=== PATIENT | male | born 1945 | race Hispanic/Latino ===

== ENCOUNTER 2016-04-27 19:04 | Observation (INO) | payer MEDICARE ==
[~2016-04-27] VITALS: Ht 162.6 cm; Wt 72.3 kg
[~2016-04-27 19:04] MED LIST: ACET325C PO; ASPI-973 PO; ATOR80TA77 PO; CARV12.52 PO; CHOL10008 PO; CYAN10008 PO; DIPH25CA6 PO; DOCU-41 PO; FLUO20CA25 PO; FLUT9.9S NS; FURO-128 PO; GABA600T2 PO; INSU100I18 SUBQ; INSU100V7 SUBQ; LOSA25TA21 PO; METF1000 PO; MULT1CAP33 PO; POTA10CA42 PO; PRAM0.5T10 PO; RANI150C4 PO
[2016-04-27 19:17] VITALS: BP 135/70; PULSE 64; RESP 16; O2SAT 96
--- NOTE | 2016-04-27 20:13 | ED.REPORT ---
HPI-Trauma Minor / Fall Date of Service Apr 27, 2016 ED Provider: Yogesh Wells PA-C Prashant is a 70-year-old male with a history of coronary artery disease, heart failure, hypertension, pacemaker, DM who presents with a left rib pain. He states that 2 days ago he slipped in his bathroom and fell against the toilet. Denies striking his head, losing consciousness. He takes baby aspirin daily, denies blood thinners. Admits to feeling weak since the accident. Denies shortness of breath, cough, wheeze, chest pain, palpitations. Denies abdominal pain, bloody/tarry stools, hematuria, dysuria. Nursing Notes Stated Complaint: BROKEN RIBS Chief Complaint: Multiple Trauma/Fall Nursing Notes Reviewed: Yes Allergies: Coded Allergies: naproxen (Verified Allergy, Mild, Restless legs, 01/18/16) Scheduled Aspirin (Aspirin) 81 Mg Tablet 81 MG PO DAILY Atorvastatin Calcium (Atorvastatin Calcium) 80 Mg Tablet 80 MG PO DAILY Carvedilol (Carvedilol) 12.5 Mg Tablet 12.5 MG PO BID Cholecalciferol (Vitamin D3) (Vitamin D3) 1,000 Unit Tab.chew 1,000 UNIT PO DAILY Cyanocobalamin (Vitamin B-12) (Vitamin B-12) 1,000 Mcg Tablet 1,000 MCG PO DAILY Docusate Sodium (Colace) 100 Mg Capsule 200 MG PO DAILY Fluoxetine (Fluoxetine) 20 Mg Capsule 40 MG PO QAM Furosemide (Lasix) 40 Mg Tablet 40 MG PO DAILY Gabapentin (Gabapentin) 600 Mg Tablet 300 MG PO QAM Gabapentin (Gabapentin) 600 Mg Tablet 1,200 MG PO HS Insulin Glargine (Lantus U100 Insulin Vial) 100 Unit/Ml Vial 16 UNIT SUBQ HS Insulin Lispro (HumaLOG U100 Insulin Pen) 100 Unit/1 Ml Insuln.pen 1 UNIT SUBQ TIDWM Blood Sugar Lispro Correction <151 0 units 151-175 1 unit 176-200 2 units 201-225 3 units 226-250 4 units 251-275 5 units 276-300 6 units 301-325 7 units 326-350 8 units 351-375 9 units 376-400 10 units >400 12 units Check blood sugars before meals and at bedtime. Use correction factor only before meals. Losartan Potassium (Losartan Potassium) 25 Mg Tablet 12.5 MG PO HS Metformin (Glucophage) 1,000 Mg Tablet 1,000 MG PO QAM Metformin (Glucophage) 1,000 Mg Tablet 1,500 MG PO QPM Multivitamin (Multivitamins) 1 Each Capsule 1 EACH PO DAILY Potassium Chloride (Potassium Chloride) 10 Meq Capsule.er 10 MEQ PO DAILY TAKE WITH FOOD Pramipexole Dihydrochloride (Pramipexole Dihydrochloride) 0.5 Mg Tablet 0.25- 0.5 MG PO HS Scheduled PRN Acetaminophen (Acetaminophen) 325 Mg Capsule 650 MG PO TID PRN PRN For Pain Fluticasone Propionate (Flonase Allergy Relief) 50 Mcg/Actuation Rochelle.susp 1 SPRAY NS DAILY PRN PRN allergies Ranitidine (Ranitidine) 150 Mg Capsule 150 MG PO DAILY PRN PRN For Dyspepsia or Heartburn diphenhydrAMINE HCl (Benadryl) 25 Mg Capsule 25 MG PO Q4 PRN PRN allergies oxyCODONE (oxyCODONE) 5 Mg Tablet 5 MG PO Q4H PRN PRN For Pain General Time Seen by MD: 19:42 Chief Complaint Other (left rib pain) Past Medical History Past Medical History 1. Severe ischemic cardiomyopathy with ejection fraction 35%. 2. Bifascicular block with prolonged QRS duration. 3. [place] Heart [employer] class III heart failure symptoms. 4. Systemic hypertension. 5. Dyslipidemia. 6. Coronary artery disease status post bypass grafting with known occluded vein graft. 7. Carotid artery stenosis. 8. Paroxysmal atrial fibrillation. 9. Sleep apnea. 10. Nephrolithiasis. 11. Spinal stenosis. 12. Gastroesophageal reflux disease. 13. Diabetes mellitus. 14. Restless legs syndrome. 15. Diabetic peripheral neuropathy. Past Surgical History Coronary artery disease status post bypass grafting with known occluded vein graft. CTR L&R Pacemaker Reports: Cholecystectomy Smoking History Former Smoker Social History Alcohol Use: Denies alcohol use Drug Use: Denies drug use Ambulatory Status Independent Review of Systems Negative unless stated otherwise in history of present illness Physical Exam General: Well appearing, well developed, well nourished, no acute distress. Head: Atraumatic, normocephalic. Eyes: No scleral icterus or injection. No discharge. Vision grossly intact. ENT: Voice clear, hearing grossly intact. Respiratory: Regular rate and rhythm. Breath sounds present, clear to auscultation and equal bilaterally. No respiratory distress. No increased work of breathing, speaks in complete sentences. Cardiovascular: Regular rate and rhythm, without murmur, gallop or rub. No pedal edema. Gastrointestinal: Abdomen flat and non-tender without guarding or rebound. Bowel sounds normoactive. Skin: Warm and dry. Chest: 4 cm ecchymosis over the lateral ribs 6-7. Tender to palpation. Neurological: Grossly nonfocal. Psychological: Alert and oriented. Speech appropriate, linear and logical. Behavior appropriate. Initial Vital Signs Vital Signs (First) Date Time Temp Pulse Resp B/P Pulse Ox O2 Delivery O2 Flow Rate FiO2 04/27/16 19:17 36.1 64 16 135/70 96 Room Air Initial VS: Reviewed, Vital signs normal Interpretation & Diagnostics Lab Results Interpretation Result Diagram: 04/27/16214404/27/162144 Test 04/27/16 21:45 White Blood Count 8.7th/mm3 (3.8-10.1) Red Blood Count 3.58mil/mm3 (4.40-5.80) Hemoglobin 10.6g/dL (13.8-17.2) Hematocrit 33.3% (41.0-50.0) Mean Corpuscular Volume 93.0fL (81-100) Mean Corpuscular Hemoglobin 29.6pg (27.0-35.0) Mean Corpuscular Hemoglobin Concent 31.8% (32.0-37.0) Red Cell Distribution Width 14.2% (12.3-15.4) Platelet Count 159bil/L (150-400) Neutrophils (%) (Auto) 77.5% (40-74) Lymphocytes (%) (Auto) 13.6% (14-46) Monocytes (%) (Auto) 7.2% (4-12) Eosinophils (%) (Auto) 1.5% (0-5) Basophils (%) (Auto) 0.1% (0-3) Sodium Level 134mEq/L (134-144) Potassium Level 4.9mEq/L (3.5-5.2) Chloride Level 92mEq/L (97-108) Carbon Dioxide Level 27mmol/L (18-29) Blood Urea Nitrogen 55mg/dL (8-27) Creatinine 1.58mg/dL (0.76-1.27) Estimat Glomerular Filtration Rate 46mL/min (>59) Glucose Level 152mg/dL (60-99) Calcium Level 9.3mg/dL (8.5-10.1) Total Bilirubin 0.5mg/dL (0.0-1.2) Aspartate Amino Transf (AST/SGOT) 33U/L (0-50) Alanine Aminotransferase (ALT/SGPT) 21U/L (0-44) Alkaline Phosphatase 71U/L (25-160) Troponin T 0.023ug/L (0.0-0.011) Total Protein 7.2g/dL (6.4-8.4) Albumin 4.2g/dL (3.4-5.0) Hold Meng Top Tube Received (Received) ECG Interpretation ECG Interpretation: Paced rhythm at 64 bpm. Pacer spikes before each QRS, 100% capture, 100% paced Interpreted by: ED physician X-Ray Chest Interpretation Chest Xray Interpretation: PROCEDURE: X-RAY LEFT RIBS INCLUDEING PA CHEST, MINUMUM THREE VIEWS ([id number]) INDICATIONS: 70 year-old female with left rib pain after fall 2 days ago. IMPRESSION: No displaced left rib fractures identified. No acute cardiopulmonary disease. Interpretation / Wet Read by: Interpret - Radiologist, Interp - P Re-Eval/Medical Decision Med Decision/Clinical Course 70-year-old male history of diabetes, hypertension, heart disease, pacemaker. Presents for left chest pain after a slip and fall in his bathroom in which he struck his left chest against the toilet. Denies hitting his head or losing consciousness. Denies shortness of breath, cough, wheeze. He also complains of weakness since the fall. Physical examination reveals bruising on the left ribs as well as tenderness. X -rays reveal no damage to the lungs or displaced rib fractures. EKG reveals a ventricular paced rhythm. CBC shows no leukocytosis but mild anemia. CMP shows reduced kidney function. Troponin mildly elevated at 0.023. I discussed these findings with the patient and his . They wish to be admitted for assessment. Contacted the hospitalist who accepts admission to observation in remote telemetry bed Consultation : Referral / Consult Name: Nuha Hensley DO Consulted With: Hospitalist Rope Making Machine Operator: Accepts admit Discharge & Departure Impression: Primary Impression: Weakness Additional Impressions: Contusion of rib on left side Encounter type: initial encounter Qualified Code: S20.212A - Contusion of left front wall of thorax, initial encounter Elevated troponin Disposition: ADMITTED TO HOSPITAL Discharge Condition All VS Reviewed: Yes Condition: Stable Patient Instructions: Contusions in Adults (ED) Additional Instructions: Evaluation for left rib pain in the emergency department. X-rays revealed no damage to your lungs and no fractures in your ribs. I believe your pain is a contusion from your fall. This should improve on its own over the next week or so. Please use your incentive spirometer every hour while while you are awake for as long as you are ribs hurt. The pain is best treated with 1000 mg of acetaminophen (Tylenol) every 6 hours. I will also give a prescription for a small amount of oxycodone to use in addition to this for more severe pain. Please not drive or drink alcohol within 4 hours of taking oxycodone. Referrals: Kristy Roy MD (PCP) EDSupervising Provider for APC: Gokul Calabrese DO copies to: Kristy Roy MD, Seth PA-C Apr 27, 2016 20:13
--- NOTE | 2016-04-27 20:55 | DRSVH ---
PROCEDURE: X-RAY LEFT RIBS INCLUDEING PA CHEST, MINUMUM THREE VIEWS ([id number]) INDICATIONS: 70 year-old female with left rib pain after fall 2 days ago. TECHNIQUE: 2 views of the left ribs were acquired, along with a single view chest. COMPARISON: [facility], CR, XR CHEST 1VW (PORTABLE), 01/18/2016, 1:40. [facility], CR, XR CHEST 1VW (PORTABLE), 01/10/2016, 12:46. [facility], CR, XR CHEST 2VW, , 14:47. FINDINGS: Skin marker denotes the site of clinical concern. Surgical changes and devices: Patient is status post coronary artery bypass grafting. The right ventr icular pacer/ICD is again noted. Bones and chest wall: No fractures or dislocations. No suspicious bony lesions. Overlying soft tis sues appear unremarkable. Lungs and pleura: No pleural effusions or pneumothorax. Lungs appear clear. Mediastinum: Mediastinal contours appear normal. Heart size is normal. There is aortic atheroscler osis. IMPRESSION: No displaced left rib fractures identified. No acute cardiopulmonary disease. Dictated by: Arpit Brooks M.D. on 04/27/2016 at 20:51 Approved by: Arpit Brooks M.D. on 04/27/2016 at 20:54
[2016-04-27 21:56] LABS: BASOPHILS % (AUTO) 0.1 % (0-3); EOSINOPHILS % (AUTO) 1.5 % (0-5); MONOCYTES % (AUTO) 7.2 % (4-12); Mean Corpuscular Hemoglobin 29.6 pg (27.0-35.0); NEUTROPHILS % (AUTO) 77.5 % (40-74); Platelet Count 159 bil/L (150-400)
[2016-04-27] MEDS ORDERED: OXYC5TAB72 PO (22:25)
[2016-04-27 22:41] LABS: TROPONIN T 0.023 ug/L (0.0-0.011)
[2016-04-27 23:20] VITALS: BP 108/58; PULSE 62; RESP 16; O2SAT 92
[2016-04-27] MEDS ORDERED: Polyethylene Glycol (PEG) 17 Gm Powder PO PRN (23:25)
[2016-04-27] MEDS ORDERED: Ondansetron 2 mg/mL 2 mL Inj IVPUSH PRN (23:25)
[2016-04-27] MEDS ORDERED: Alum-Mag Hydrox-Simeth 30 mL Suspension PO PRN (23:25)
[2016-04-27 23:50] VITALS: BP 121/63; PULSE 62; RESP 21; O2SAT 94
[2016-04-28] VITALS (7 sets, daily range): BP systolic 113–147; BP diastolic 62–80; PULSE 58–69; RESP 14–18; O2SAT 93–100
--- NOTE | 2016-04-28 00:57 | NUR ---
Admit Patient admitted to room 3008 at 2340, accompanied by . Oriented to room, call light, hospital policies, plan of care, intentional rounding. Asked patient's to bring in current medication list and CPAP, agreeable. Patient on telemetry. Denies pain except with coughing/hiccuping/laughing. Awaiting further MD orders. Property waiver signed by patient's , she took most belongings home.
[2016-04-28] MEDS ORDERED: Ondansetron 2 mg/mL 2 mL Inj IVPUSH PRN (01:10)
[2016-04-28] MEDS ORDERED: Atropine 1 mg/10 mL (Code) Syringe IVPUSH PRN (01:10)
[2016-04-28] MEDS ORDERED: Polyethylene Glycol (PEG) 17 Gm Powder PO PRN (01:10)
[2016-04-28] MEDS ORDERED: Alum-Mag Hydrox-Simeth 30 mL Suspension PO PRN (01:10)
[2016-04-28] MEDS ORDERED: Senna-Docusate 8.6-50 mg Tablet PO PRN (01:10)
[2016-04-28] MEDS ORDERED: 0.9% Sodium Chloride 1,000 ML IV SCH (01:10)
[2016-04-28] MEDS: Sodium Chloride LOK Flush 10 mL Syringe IVFLUSH SCH ×2 (01:43→17:29)
[2016-04-28 02:00] LABS: Creatine Kinase 90 U/L (21-232)
[2016-04-28] MEDS ORDERED: Glucose 40% Oral Gel 15 Gm Tube PO PRN (05:15)
--- NOTE | 2016-04-28 05:26 | PCM.HPMED ---
Subjective Date of Service Apr 28, 2016 Primary Provider: Admitting Physician: Nuha Hensley DO Primary Care Physician: Kristy Roy MD Attending Physician: Nuha Hensley DO Admit Status: From the Emergency Department Chief Complaint: Weakness History of Present Illness: 70-year-old male patient with a history of type II diabetes insulin-dependent, CHF, coronary artery disease status post CABG and dementia presented to the ER with complaint of weakness and rib pain. Patient reports that 3 days ago he slipped in his bathroom and hit the side of his chest on the tub. Patient states he was told he has not broken any ribs but continues to complain of pain. Patient reports that this morning he got up and was sitting at the edge of his bed and began feeling very dizzy and weak. Patient states that he almost fainted. Patient reports that he thought that the episode would dissipate but it did not and his drove him to the ER. Patient states that he is no longer feeling dizzy but he does continue to feel very weak. Patient denies any shortness of breath, chest pain, nausea, vomiting, diarrhea. Patient does report continued rib pain especially with deep inspiration. Review of Systems: A comprehensive review of systems was conducted with the patient and found to be negative except as above in the History of Present Illness. Allergies Coded Allergies: naproxen (Verified Allergy, Mild, Restless legs, 01/18/16) Home Medications From outpatient records Aricept 10 mg daily Atorvastatin 80 mg daily Carvedilol 12.5 mg twice a day Famotidine 20 mg twice a day Flomax 0.4 mg twice a day Fluoxetine 20 mg, 2 capsules daily Furosemide 40 mg daily Gabapentin 600 mg tablet, 300 mg in the morning and 1200 mg at night Lantus 16 units every evening Losartan 25 mg daily Metformin 500 mg, 2 tablets every morning and 3 tablets every evening Vitamin Pramipexole 0.5 mg, half tablet to one tablet every day Ranitidine 150 mg 1 tablet twice a day PMH History of CVA Hyperlipidemia Diabetes mellitus type 2 independent Peripheral vascular disease 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 Sleep apnea using CPAP Nonoperable CAD s/p CABG Systolic congestive heart failure with right ventricular dysfunction secondary to ischemic cardiomyopathy Dementia Aortic stenosis - severe Carotid artery stenosis, bilateral Seasonal allergies Biventricular automatic implantable cardioverter defibrillator in situ Vertebral artery stenosis Restless leg syndrome Spinal stenosis with chronic low back pain Non-rheumatic mitral regurgitation Depression Atrial fibrillation, paroxysmal Hepatitis Nephrolithiasis Chronic renal insufficiency GERD Hypertension 1st degree AV block Peyronie's disease Alcoholism - 1969 Substance abuse-1969 Pneumonia Cholelithiasis Surgical History CABG Failed femoral-popliteal bypass Cholecystectomy Bilateral carpal tunnel release Back surgery Biventricular pacemaker placement Right cataract extraction Family History Father-obstructive sleep apnea, anxiety, alcoholism, cancer Mother-CVA, brain aneurysm, diabetes mellitus, cardiac surgery Family history-colon cancer, hypertension, anemia, CAD, hyperlipidemia Social History Hx Alcohol Use: Yes (occasional) Hx Substance Use: Yes (Marijuana in the 70s) Hx Tobacco Use: Yes (quit 35 years ago, 1/2 PPD 10 years) Smoking Status: Former Smoker Living Arrangement: with Family Exam Vital Signs Vital Sign - Last Date Time Temp Pulse Resp B/P Pulse Ox O2 Delivery O2 Flow Rate FiO2 04/27/16 23:50 36.5 62 21 121/63 94 Room Air Exam General: No acute distress, well-developed, well-nourished, appropriately interactive HEENT: Normocephalic, atraumatic. External ears without defect. Pupils equal, round, and reactive to light and accommodation. Moist conjunctivae. Oropharynx with moist mucosa. Neck: Supple with full range of motion.No lymphadenopathy Cardiovascular: Regular rate and rhythm with systolic murmur. No rubs, or gallops appreciated Pulmonary: Wincing with deep inspiration secondary to rib pain on left side. Clear to auscultation bilaterally with no crackles, wheezes, or rhonchi. Normal respiratory effort with no use of accessory muscles. Abdomen: Bowel tones present. Soft, nontender, nondistended. Extremities: No clubbing, cyanosis, edema, appreciated. Skin: Normal temperature, turgor, and texture; no rash, ulcers, or subcutaneous nodules appreciated. Psychiatric: Normal mood and affect, forgetful at times. Alert and oriented to person, place, and time. Lab and Diagnostics Result Diagram: 04/27/16214404/27/162144 X-Rays, CTs and MRIs PROCEDURE: X-RAY LEFT RIBS INCLUDEING PA CHEST, MINUMUM THREE VIEWS ([id number]) INDICATIONS: 70 year-old female with left rib pain after fall 2 days ago. TECHNIQUE: 2 views of the left ribs were acquired, along with a single view chest. COMPARISON: [facility], CR, XR CHEST 1VW (PORTABLE), 01/18/2016, 1: 40. [facility], CR, XR CHEST 1VW (PORTABLE), 01/10/2016, 12:46. [facility], CR, XR CHEST 2VW, 11/11/2014, 14:47. FINDINGS: Skin marker denotes the site of clinical concern. Surgical changes and devices: Patient is status post coronary artery bypass grafting. The right ventricular pacer/ICD is again noted. Bones and chest wall: No fractures or dislocations. No suspicious bony lesions. Overlying soft tissues appear unremarkable. Lungs and pleura: No pleural effusions or pneumothorax. Lungs appear clear. Mediastinum: Mediastinal contours appear normal. Heart size is normal. There is aortic atherosclerosis. IMPRESSION: No displaced left rib fractures identified. No acute cardiopulmonary disease. Dictated by: Arpit Brooks M.D. on 04/27/2016 at 20:51 Approved by: Arpit Brooks M.D. on 04/27/2016 at 20:54 Assessment & Plan Acute generalized weakness, unknown etiology, present on admission, ongoing -Patient reports sudden onset of weakness -Clear etiology at this time, there are no signs of infection, no electrolyte abnormalities, no anemia and no arrhythmias as patient is paced -Continue to monitor -Physical therapy evaluation in the a.m. Elevated troponin of unknown etiology, present on admission, ongoing -Initial troponin elevated at 0.023 -Trending troponins every 4 hours -Troponin elevation is likely secondary to chronic kidney disease -Patient denies any chest pain or symptoms -Continue to monitor Chronic anemia, present on admission, ongoing -Outpatient records demonstrates chronic anemia, secondary to kidney disease -Continue to monitor with a.m. labs Chronic kidney disease, present on admission, ongoing -Review of outpatient records demonstrates that patient's baseline creatinine is about 1.5. Labs from 04/13/2016 show BUN of 58 creatinine 1.53 -Continue to monitor with labs Diabetes mellitus type II, insulin-dependent, present on admission, ongoing -Hold home dose of medications once medication reconciliation was completed -Low-dose correctional insulin ordered -Diabetic diet in the a.m. Recent ground-level fall resulting in contusions to left ribs, present on admission, ongoing -X-rays of ribs did not demonstrate any fractures -Recommend use of incentive spirometry as patient is at high risk of atelectasis -Current use of pillows for splinting Coronary artery disease status post CABG, chronic, presumed stable -Once medication reconciliation is completed, continue home medications Systolic congestive heart failure, chronic, presumed stable -Patient lying supine with no lower extremity edema or report of shortness of breath -Patient is followed by Dr. Block of cardiology -Patient receiving IV normal saline, monitor to avoid fluid overload -Once medication reconciliation is completed, continue home medications Chronic dementia, presumed stable -Once medication reconciliation is completed, continue home medications BPH, chronic, presume stable. -Once medication reconciliation is completed, continue home medications Depression, chronic, presume stable -Once medication reconciliation is completed, continue home medications Obstructive sleep apnea with CPAP, chronic, presume stable - to bring in CPAP PCP: Dr Roy CODE STATUS: Compressions and cardioversion okay. DO NOT INTUBATE VTE Mechanical Devices: Intermittant Pneumatic CD Resuscitation Status: Limited Interventions Limited Interventions: Compressions, Cardioversion/Defibrillation Attending Statement The patient was seen and examined together with house staff on 04/28/2016 and I agree with the history, exam and plan as outlined in the note above. copies to: Kristy Roy MD, Tara L DO Apr 28, 2016 01:49 Nuha Hensley DO Apr 28, 2016 05:42
[2016-04-28 07:08] LABS: Magnesium 2.4 mg/dL (1.6-2.6)
[2016-04-28] MEDS: Insulin LISPRO 300 Unit/3 mL Inj SUBQ SCH ×5 (07:40→21:08)
[2016-04-28 08:04] LABS: BASOPHILS % (AUTO) 0.3 % (0-3); EOSINOPHILS % (AUTO) 3.3 % (0-5); MONOCYTES % (AUTO) 12.7 % (4-12); Mean Corpuscular Hemoglobin 29.3 pg (27.0-35.0); Mean Corpuscular Volume 92.8 fL (81-100); NEUTROPHILS % (AUTO) 64.1 % (40-74); Platelet Count 146 bil/L (150-400)
[2016-04-28 08:24] LABS: INR 1.01 ratio
[2016-04-28] MEDS ORDERED: DONE10TA5 PO (08:27)
[2016-04-28] MEDS ORDERED: FAMO20TA4 PO (08:28)
[2016-04-28] MEDS ORDERED: TAMS0.4C98 PO (08:29)
[2016-04-28 08:34] LABS: TROPONIN T 0.012 ug/L (0.0-0.011)
[2016-04-28 08:45] LABS: Magnesium 2.3 mg/dL (1.6-2.6)
[2016-04-28 09:59] LABS: APPEARANCE,URINE HAZY (CLEAR,HAZY); COLOR,URINE STRAW (YELLOW)
[2016-04-28 10:00] LABS: OCCULT BLOOD,URINE NEGATIVE (NEGATIVE); UROBILINOGEN,URINE NORMAL (NORMAL)
--- NOTE | 2016-04-28 11:10 | NUR ---
Evaluation completed. Please go to "Notes" then click on "Assessments and Notes" (bottom left corner of screen). Then select appropriate discipline tab on top of screen.
[2016-04-28] MEDS ORDERED: Fluticasone 0.05% 15 Spray/2 Gm 16 Gm Nasal Spray NOSTRIL PRN (12:05)
--- NOTE | 2016-04-28 13:21 | NUR ---
Social Work: Initial Assessment Data: Pt is a 70 y/o male admitted for weakness/elevated troponin. Pt's PCP is Dr Roy, pt's insurance is [employer]. EMR reviewed. Readmit score not listed. BENDER MACHINE OPERATOR met with pt and family at bedside, role explained. Pt states that he lives in [place] with his in a two story home where he uses a cane and walker. Pt states he uses O2 through [employer] and has a Cpap. Pt states he has hx with [facility], open with them right now, and no hx of SNF, no LTC or VA benefits, and is not a caregiver for another. Pt state she has a DPOA, BENDER MACHINE OPERATOR requested paper work for hospital. Pt open with [facility] for RN, PT. BENDER MACHINE OPERATOR called [facility] to request SLASHER HAND be added. Access given. MD will need to write in D/C summary to resume HH and to add bath aid. BENDER MACHINE OPERATOR will continue to follow. Assessment: Pt who is independent at baseline. Plan: Pt will d/c home via POV when medically stable with resume FRANK, RN/PT, add SLASHER HAND(bath aid). MD will need to write in D/C summary to resume HH and to add bath aid. BENDER MACHINE OPERATOR will continue to follow. OBED Sherman Addendum: 04/28/16 at 1328 by PRESTON COYLE SS Amended: Links added.
--- NOTE | 2016-04-28 14:56 | DRSVH ---
PROCEDURE: CT BRAIN WITHOUT CONTRAST ([id number]) INDICATIONS: altered mental status. weakness TECHNIQUE: Noncontrast 4.5 mm thick angled axial sections acquired from the foramen magnum to the vertex, with c oronal reformats. COMPARISON: [facility], CT, CT BRAIN WO CON, 01/18/2016, 1:56. [facility], CT, CT BRAIN WO CON, 01/10/2016, 13:00. FINDINGS: Image quality: Excellent. CSF spaces: Basal cisterns are patent. No extra-axial fluid collections. The ventricles are symmet carla in size and shape. Brain: No intracranial bleeds or masses. There is cerebral volume loss for age, with resultant vent ricular and sulcal prominence. There are periventricular and deep white matter chronic small vessel ischemic changes. There is intracranial internal carotid artery atherosclerosis. Skull and face: Calvarium and visualized facial bones appear intact, without suspicious lesions. Sinuses: Visualized sinuses and mastoids are clear. IMPRESSION: No acute intracranial abnormality. Dictated by: Herminio Ordonez M.D. on 04/28/2016 at 14:49 Approved by: Herminio Ordonez M.D. on 04/28/2016 at 14:50
--- NOTE | 2016-04-28 15:36 | NUR ---
ART explained and signed. Pt's and daughter at bedside and heard explanation also. Copy of CORDOVA provided.
--- NOTE | 2016-04-28 16:33 | PCM.PNMED ---
Subjective Date of Service Apr 28, 2016 Subjective still having some generalized weakness but overall says feels better. Exam Vital Signs Vital Sign - Last Date Time Temp Pulse Resp B/P Pulse Ox O2 Delivery O2 Flow Rate FiO2 04/28/16 13:59 36.6 63 16 113/80 94 Room Air 04/28/16 04:09 2.00 Intake and Output 04/27/16 04/27/16 04/28/16 Cumulative From/Thru 15:00 23:00 07:00 04/27/16 19:17 - 04/28/16 06:05 Intake Total 348 ml 348 ml Output Total 100 ml 100 ml Balance 248 ml 248 ml Intake Oral 0 ml 0 ml IV Total 348 ml 348 ml Output Urine Total 100 ml 100 ml # Voids 2 2 # Bowel Movements 0 0 General: Alert, Oriented X3, Cooperative, No Acute Distress Eyes: PERRLA, EOMI, Scleral Anicteric Nose: Mucous Membr Moist/[place] Mouth: Mucous Membr Moist/[place] Neck: Supple Chest & Lungs: Chest Wall Normal, Clear to auscultation & percussion Cardiovascular: Regular Rate/Rhythm Pulses: NL carotid, radial, femoral, DP, PT Abdomen: Non-tender, Non-distended, Normoactive bowel tones, Soft Extremities: No cyanosis/clubbing/edma bilat Neurological: Grossly Neurologically Intact, Cranial Nerves 2-12 Intact, Normal Speech IVs and Medications Medications Reviewed: Medications were reviewed in detail Lab and Diagnostics Result Diagram: 04/28/16 0738 04/28/16 0738 X-Rays, CTs and MRIs PROCEDURE: X-RAY LEFT RIBS INCLUDEING PA CHEST, MINUMUM THREE VIEWS ([id number]) INDICATIONS: 70 year-old female with left rib pain after fall 2 days ago. TECHNIQUE: 2 views of the left ribs were acquired, along with a single view chest. COMPARISON: [facility], CR, XR CHEST 1VW (PORTABLE), 01/18/2016, 1: 40. [facility], CR, XR CHEST 1VW (PORTABLE), 01/10/2016, 12:46. [facility], CR, XR CHEST 2VW, 11/11/2014, 14:47. FINDINGS: Skin marker denotes the site of clinical concern. Surgical changes and devices: Patient is status post coronary artery bypass grafting. The right ventricular pacer/ICD is again noted. Bones and chest wall: No fractures or dislocations. No suspicious bony lesions. Overlying soft tissues appear unremarkable. Lungs and pleura: No pleural effusions or pneumothorax. Lungs appear clear. Mediastinum: Mediastinal contours appear normal. Heart size is normal. There is aortic atherosclerosis. IMPRESSION: No displaced left rib fractures identified. No acute cardiopulmonary disease. Dictated by: Arpit Brooks M.D. on 04/27/2016 at 20:51 Approved by: Arpit Brooks M.D. on 04/27/2016 at 20:54 Assessment & Plan 70-year-old male patient with a history of type II diabetes insulin-dependent, CHF, coronary artery disease status post CABG and dementia presented to the ER with complaint of weakness and rib pain. # Acute generalized weakness, present on admission, improving -Patient reports sudden onset of weakness and difficulty with speech prior to presentation -Unclear exact etiology but possibly due to dehydration vs less likely acute TIA -check CT brain (unable to get MRI due to pacer) # Elevated troponin of unknown etiology, present on admission -Initial troponin elevated at 0.023 now trended down to normal -check limited echo -denies any CP other than left rib pain # Chronic anemia, present on admission, stable -Outpatient records demonstrates chronic anemia, secondary to kidney disease -f/u # Chronic kidney disease, present on admission, ongoing -Review of outpatient records demonstrates that patient's baseline creatinine is about 1.5. -Continue to monitor with labs # Diabetes mellitus type II, insulin-dependent, present on admission, ongoing -Resume home dose Insulin -Low-dose correctional insulin -stop Metformin given underlying CKD # Recent ground-level fall resulting in contusions to left ribs, present on admission, ongoing -X-rays of ribs did not demonstrate any fractures -Incentive spirometry -supportive care # Coronary artery disease status post CABG, chronic, presumed stable -c/w home meds # Systolic congestive heart failure, chronic, presumed stable -Patient lying supine with no lower extremity edema or report of shortness of breath -Patient is followed by Dr. Block of cardiology -c/w home meds # Chronic dementia, presumed stable -c/w home meds # BPH, chronic, presume stable. -c/w home meds # Depression, chronic, presume stable -continue home medications # Obstructive sleep apnea with CPAP, chronic, presume stable -c/w home CPAP Dispo: likely home tomorrow VTE Mechanical Devices: Intermittant Pneumatic CD Resuscitation Status: Limited Interventions Limited Interventions: Compressions, Cardioversion/Defibrillation Time spent 30 min Saleem Ferrer Apr 28, 2016 16:33
--- NOTE | 2016-04-28 17:00 | NUR ---
Activity Up to EOB and chair for meals. Using urinal at bedside with SBA. No dizziness reported, slight weakness continues. Tele monitoring showing HR paced 50-60s.
--- NOTE | 2016-04-28 20:12 | DRSVH ---
[facility] [address] [place] [address] Echocardiogram Report Name: PELON ESPAÑA MStudy Date : 04/28/2016 Height: 6 4 in Hospital Exam Location: [facility] Weight: 1 62 lb Gender: Male BSA: 1.8 m2 : 1945 Age: 70 yrs BP: 125/6 8 mmHg Reason For Study: Elevated Troponin History: CABG Ordering Physician: HOSPITALIST [facility] Performed By: Addis Barragan Referring Physician: Jesus Lopez Interpretation Summary 1. Normal left ventricular size with increased thickness of the septal wall with multiple wall motion abnormalities as noted below and global EF estimated at 30-35% 2. Normal right ventricular size with mild to moderately reduced systolic function. The estimated RVSP is 71 mm Hg 3. Evidence for moderate aortic stenosis, no insufficiency Compared to the previous study, the estimated RVSP is higher Procedure: A two-dimensional transthoracic echocardiogram with color flow and Doppler was performed in limited views only. The study quality was technically adequate. A contrast injection of Definity was performed to improve assessment of LV function. The patient did well with the contrast. Comparison is made with the echocardiogram of 03/01/2016. The patient has a paced rhythm. Left Ventricle: The left ventricle is normal in size. There is mild asymmetric left ventricular hypertrophy. The ejection fraction is estimated to be 30-35%. Moderate global hypokinesis and thinning and akinesis of the basal inferior/inferolateral wall and basal 2/3s of the lateral wall. Diastolic function could not be accurately assessed due to paced rhythm. The E/E' ratio is severely increased, suggesting possible increased filling pressures. Right Ventricle: The right ventricle is normal size. There is a pacemaker lead in the right ventricle. Right ventricular systolic function is mild to moderately reduced. Mitral Valve: There is moderate mitral annular calcification. Calcified mitral apparatus. There is trace mitral regurgitation. Aortic Valve: There is moderate aortic stenosis. The aortic valve mean gradient is 15 mmHg. The peak aortic velocity is 2.7 m/sec. Velocity ratio is 0.26. No aortic regurgitation is present. Tricuspid Valve: There is mild tricuspid regurgitation. The right ventricular systolic pressure is estimated at 71 mmHg assuming a right atrial pressure of 8 mm Hg. Great Vessels: The IVC is of normal diameter and collapses less than 50% with a sniff. This suggests a right atrial pressure of 8 mm Hg. Pericardium/ Pleura There is no pericardial effusion. MMode/2D Measurements & Calculations LVIDd: 4.9 cm IVC diam: 1.9 cm LVOT diam EDV(MOD-sp2) LVIDs: 4.6 cm : 2.2 cm : 195.4 ml FS: 7.0 % IVSd: 1.6 cm LVPWd: 1.0 cm LV mcneill. diameter/BSA LV sys. diameter/BSA RVD1 (basal) TAPSE: 1.0 cm (cm/m^2): 2.7 (cm/m^2): 2.6 Doppler Measurements & Calculations Ao V2 max MV E max mike MV E/A: 3.8 TR max mike : 266.4 cm/sec : 140.5 cm/sec Med Peak E' Mike : 397.9 cm/sec Ao max P.4 mmHg MV A max mike TR max PG Ao mean P.8 mmHg : 37.4 cm/sec E/E' med: 52.3 : 63.3 mmHg LVOT Max Mike MV P1/2t: 60.0 msecMV A dur: 0.08 sec : 70.1 cm/sec MVA(VTI): 1.8 cm2 JULITO(I,D): 0.99 cm sev ratio: 0.25 MV V2 mean MV P1/2t max mike Ao V2 mean LV V1 max PG : 55.6 cm/sec : 178.5 cm/sec MV mean P.8 mmHg MVA(P1/2t): 3.7 cm2Ao V2 VTI: 56.8 cm LV V1 VTI MV V2 VTI: 31.1 cm JULITO(V,D): 1.0 cm2 : 14.5 cm MV dec time: 0.20 sec JULITO indexed to BSA (cm^2/m^2): 0.55 Reading Physician:08:11 PM
[2016-04-28] MEDS ORDERED: Insulin GLARgine 100 Unit/mL Syringe SUBQ SCH (21:00)
[2016-04-29] VITALS (7 sets, daily range): BP systolic 126–127; BP diastolic 61–73; PULSE 58–64; RESP 16–18; O2SAT 84–100
[2016-04-29] MEDS: Sodium Chloride LOK Flush 10 mL Syringe IVFLUSH SCH ×2 (00:28→07:50)
[2016-04-29 06:19] LABS: BASOPHILS % (AUTO) 0.5 % (0-3); EOSINOPHILS % (AUTO) 2.7 % (0-5); MONOCYTES % (AUTO) 11.7 % (4-12); Mean Corpuscular Hemoglobin 29.2 pg (27.0-35.0); Mean Corpuscular Volume 92.6 fL (81-100); NEUTROPHILS % (AUTO) 64.9 % (40-74); Platelet Count 146 bil/L (150-400)
--- NOTE | 2016-04-29 06:29 | NUR ---
Pain/Activities pt c/o pain 5/10 at left ribs,increase with activities, denies chest pressure/SOB. Pt prefers Tylenol rather than Morphine, refuses ice bag when offered, Tylennolx2 given per pt requests. Pain resolved to 0/10 in between pain med given. Pt sitting up in chair for a couple of hours overnight, mild generalized weakness, slightly unsteady gait, denies dizziness, vertigo, SBA for safety, no fall. Dovray alarm on. .
[2016-04-29] MEDS: Insulin LISPRO 300 Unit/3 mL Inj SUBQ SCH ×4 (07:39→12:00)
--- NOTE | 2016-04-29 10:28 | PCM.DIMED ---
Discharge Instructions Date of Service Apr 29, 2016 Dates of Hospitalization Apr 27, 2016 at 23:30 Discharge Diagnosis Discharge Diagnosis # Acute generalized weakness, present on admission, Resolved -Unclear exact etiology but possibly due to dehydration # Chronic anemia, present on admission, stable # Chronic kidney disease, present on admission, improved # Diabetes mellitus type II, insulin-dependent, present on admission, ongoing # Recent ground-level fall resulting in contusions to left ribs, present on admission, ongoing -X-rays of ribs did not demonstrate any fractures # Coronary artery disease status post CABG, chronic, presumed stable # Systolic congestive heart failure, chronic, presumed stable # Chronic dementia, presumed stable # BPH, chronic, presume stable. # Depression, chronic, presume stable # Obstructive sleep apnea with CPAP, chronic, presume stable Medication Instructions Recommend that you stop taking Metformin given underlying chronic kidney disease and followup with your primary care provider for further recommendations and management of diabetes. Diet Low fat, Low Sodium, Heart Healthy, Diabetic Activity Home Health Phyical Therapy Call your provider Fever or Chills, Shortness of breath, Bleeding, Chest pain, Weakness (unilateral ) Patient Instructions Seek immediate medical attention if any new or worsening signs or symptoms occur. Resume home health including Bath-aid and physical therapy. Follow-up plan 1. Followup with primary care provider in within one week Follow-up Provider: Kristy Roy MD Follow-up with PCP in: 1 week Saleem Ferrer Apr 29, 2016 10:28
--- NOTE | 2016-04-29 10:59 | NUR ---
Social Work: Discharge Data: Pt is on day 2 of hospitalization. EMR reviewed. D/C orders are in. HUMAN RESOURCES REPRESENTATIVE called [facility], notified them that pt will be discharging today. MD included adding METER MAINTENANCE PERSON/ bath aid to pt's HH with PT and RN. No further d/c planning needed at this time. HUMAN RESOURCES REPRESENTATIVE will continue to follow if needs arise. Assessment: Pt with some assistance at baseline. Plan: Pt will d/c home via POV with family with resume [facility], RN/PT and adding METER MAINTENANCE PERSON. No further d/c planning needed at this time. HUMAN RESOURCES REPRESENTATIVE will continue to follow if needs arise. OBED Sherman
--- NOTE | 2016-04-29 12:26 | NUR ---
Discharge D/C to home with and HH including PT and bath aid. D/C and f/u instructions, care notes discussed and provided. No further questions at this time. Escorted to vehicle via [employer]BI[employer] REPORT DEVELOPER and w/c with all belongings.
--- NOTE | 2016-04-29 15:55 | PCM.DC.MED ---
Discharge Summary Date of Service Apr 29, 2016 Dates of Hospitalization Date of Hospital Admission Apr 27, 2016 at 23:30 Date of Discharge: Apr 29, 2016 Providers: Admitting Physician: Nuha Hensley DO Primary Care Physician: Kristy Roy MD Attending Physician: Nuha Hensley DO Diagnosis at Time of Discharge Diagnosis at Time of Discharge # Acute generalized weakness, present on admission, Resolved -Unclear exact etiology but possibly due to dehydration # Chronic anemia, present on admission, stable # Chronic kidney disease, present on admission, improved # Diabetes mellitus type II, insulin-dependent, present on admission, ongoing # Recent ground-level fall resulting in contusions to left ribs, present on admission, ongoing -X-rays of ribs did not demonstrate any fractures # Coronary artery disease status post CABG, chronic, presumed stable # Systolic congestive heart failure, chronic, presumed stable # Chronic dementia, presumed stable # BPH, chronic, presume stable. # Depression, chronic, presume stable # Obstructive sleep apnea with CPAP, chronic, presume stable Procedures XRay, CTs & MRIs Date of Service: 04/27/162008 PROCEDURE: X-RAY LEFT RIBS INCLUDEING PA CHEST, MINUMUM THREE VIEWS ([id number]) IMPRESSION: No displaced left rib fractures identified. No acute cardiopulmonary disease. Dictated by: Arpit Brooks M.D. on 04/27/2016 at 20:51 Approved by: Arpit Brooks M.D. on 04/27/2016 at 20:54 Date of Service: 04/28/16 1202 PROCEDURE: CT BRAIN WITHOUT CONTRAST ([id number]) IMPRESSION: No acute intracranial abnormality. Dictated by: Herminio Ordonez M.D. on 04/28/2016 at 14:49 Approved by: Herminio Ordonez M.D. on 04/28/2016 at 14:50 Cardiac Echo Impression Date of Service: 04/28/16 1202 Echocardiogram Report Interpretation Summary 1. Normal left ventricular size with increased thickness of the septal wall with multiple wall motion abnormalities as noted below and global EF estimated at 30-35% 2. Normal right ventricular size with mild to moderately reduced systolic function. The estimated RVSP is 71 mm Hg 3. Evidence for moderate aortic stenosis, no insufficiency Compared to the previous study, the estimated RVSP is higher Reading Physician:08:11 PM Brief History As noted in H&P by Dr. Reed: 70-year-old male patient with a history of type II diabetes insulin-dependent, CHF, coronary artery disease status post CABG and dementia presented to the ER with complaint of weakness and rib pain. Patient reports that 3 days ago he slipped in his bathroom and hit the side of his chest on the tub. Patient states he was told he has not broken any ribs but continues to complain of pain. Patient reports that this morning he got up and was sitting at the edge of his bed and began feeling very dizzy and weak. Patient states that he almost fainted. Patient reports that he thought that the episode would dissipate but it did not and his drove him to the ER. Patient states that he is no longer feeling dizzy but he does continue to feel very weak. Patient denies any shortness of breath, chest pain, nausea, vomiting, diarrhea. Patient does report continued rib pain especially with deep inspiration. Hospital Course # Acute generalized weakness, present on admission, improving -Patient reports sudden onset of weakness and difficulty with speech prior to presentation -Unclear exact etiology but possibly due to dehydration vs less likely acute TIA - CT brain unremarkable. (unable to get MRI due to pacer) # Elevated troponin of unknown etiology, present on admission -Initial troponin elevated at 0.023 now trended down to normal -limited echo without significant change (as noted above) -denies any CP other than left rib pain # Chronic anemia, present on admission, stable -Outpatient records demonstrates chronic anemia, secondary to kidney disease # Chronic kidney disease, present on admission, improved with IVF -Review of outpatient records demonstrates that patient's baseline creatinine is about 1.5. -Continue to monitor with labs # Diabetes mellitus type II, insulin-dependent, present on admission, ongoing -c/w home dose Insulin -stop Metformin given underlying CKD # Recent ground-level fall resulting in contusions to left ribs, present on admission, ongoing -X-rays of ribs did not demonstrate any fractures -Incentive spirometry -supportive care # Coronary artery disease status post CABG, chronic, presumed stable -c/w home meds # Systolic congestive heart failure, chronic, presumed stable -Patient lying supine with no lower extremity edema or report of shortness of breath -Patient is followed by Dr. Block of cardiology -c/w home meds # Chronic dementia, presumed stable -c/w home meds # BPH, chronic, presume stable. -c/w home meds # Depression, chronic, presume stable -continue home medications # Obstructive sleep apnea with CPAP, chronic, presume stable -c/w home CPAP by day of d/c his reports that patient appears at his baseline. patient himself reports feeling back to baseline and requesting d/c home. Lungs CTA bilat. Exam Vital Signs (Last) Date Time Temp Pulse Resp B/P Pulse Ox O2 Delivery O2 Flow Rate FiO2 04/29/16 10:05 63 04/29/16 09:29 36.4 18 126/61 99 Room Air 04/29/16 05:28 2.00 Test 04/27/16 21:45 04/27/16 23:45 04/28/16 05:53 04/28/16 06:05 Total Bilirubin 0.5mg/dL (0.0-1.2) Aspartate Amino Transf (AST/SGOT) 33U/L (0-50) Alanine Aminotransferase (ALT/SGPT) 21U/L (0-44) Alkaline Phosphatase 71U/L (25-160) Total Protein 7.2g/dL (6.4-8.4) Albumin 4.2g/dL (3.4-5.0) Hold Meng Top Tube Received (Received) Hemoglobin A1c 6.2% (4.8-5.6) Total Creatine Kinase 90U/L (21-232) Creatine Kinase MB 2.5ng/mL (0.0-10.4) Creatine Kinase MB % % (0.0-5.0) Pro-B-Type Natriuretic Peptide 4137pg/mL (0-376) Thyroid Stimulating Hormone (TSH) 1.210uIU/mL (0.450-4.500) Urine Color Straw (YELLOW) Urine Appearance Hazy (CLEAR,HAZY) Urine pH 6.0 (5.0-8.0) Urine Specific Welch 1.010 (1.003-1.035) Urine Protein Negativemg/dL (NEG,TRACE) Urine Glucose (UA) Negativemg/dL (NEGATIVE) Urine Ketones Negativemg/dL (NEGATIVE) Urine Occult Blood Negative (NEGATIVE) Urine Nitrite Negative (NEGATIVE) Urine Bilirubin Negative (NEGATIVE) Urine Urobilinogen Normalmg/dL (NORMAL) Urine Leukocyte Esterase Negative (NEGATIVE) Urine RBC 0-2/hpf (0-2) Urine WBC 0-5/hpf (0-5) Urine Epithelial Cells None/hpf (NONE-MOD) Urine Crystals None seen (NONE SEEN) Urine Bacteria None/hpf (NONE-FEW) Urine Hyaline Casts None/lpf (NONE) Urine Granular Casts None seen (NONE SEEN) Urine Waxy Casts None seen (NONE SEEN) Urine Red Blood Cell Casts None seen (NONE SEEN) Urine White Blood Cell Casts None seen (NONE SEEN) Urine Mucus None seen (None Seen) Urine Trichomonas None seen (NONE SEEN) Urine Yeast None (NONE SEEN) Urinalysis Comment None Urine Culture Reflexed Not indicated Test 04/28/16 07:38 04/28/16 19:25 04/29/16 05:35 Prothrombin Time 10.8sec (8.1-12.5) Prothromb Time International Ratio 1.01ratio Activated Partial Thromboplast Time 26.7sec (22.8-33.0) Magnesium Level 2.3mg/dL (1.6-2.6) Troponin T < 0.010ug/L (0.0-0.011) White Blood Count 6.3th/mm3 (3.8-10.1) Red Blood Count 3.53mil/mm3 (4.40-5.80) Hemoglobin 10.3g/dL (13.8-17.2) Hematocrit 32.7% (41.0-50.0) Mean Corpuscular Volume 92.6fL (81-100) Mean Corpuscular Hemoglobin 29.2pg (27.0-35.0) Mean Corpuscular Hemoglobin Concent 31.5% (32.0-37.0) Red Cell Distribution Width 14.2% (12.3-15.4) Platelet Count 146bil/L (150-400) Neutrophils (%) (Auto) 64.9% (40-74) Lymphocytes (%) (Auto) 20.0% (14-46) Monocytes (%) (Auto) 11.7% (4-12) Eosinophils (%) (Auto) 2.7% (0-5) Basophils (%) (Auto) 0.5% (0-3) Sodium Level 138mEq/L (134-144) Potassium Level 4.4mEq/L (3.5-5.2) Chloride Level 99mEq/L (97-108) Carbon Dioxide Level 24mmol/L (18-29) Blood Urea Nitrogen 46mg/dL (8-27) Creatinine 1.26mg/dL (0.76-1.27) Estimat Glomerular Filtration Rate 60mL/min (>59) Glucose Level 106mg/dL (60-99) Calcium Level 8.9mg/dL (8.5-10.1) Triglycerides Level 67mg/dL (0-149) Cholesterol Level 90mg/dL (100-199) LDL Cholesterol, Calculated 40.600mg/dL (0-99) VLDL Cholesterol 13.400mg/dL HDL Cholesterol 36mg/dL (>39) Cholesterol/HDL Ratio 2.50 (0.0-4.4) Discharge Medications Discharge Medications Aspirin (Aspirin) 81 Mg Tablet 81 MG PO DAILY (Reported) Atorvastatin Calcium (Atorvastatin Calcium) 80 Mg Tablet 80 MG PO DAILY ( Reported) Carvedilol (Carvedilol) 12.5 Mg Tablet 12.5 MG PO BID (Reported) Cholecalciferol (Vitamin D3) (Vitamin D3) 1,000 Unit Tab.chew 1,000 UNIT PO DAILY (Reported) Cyanocobalamin (Vitamin B-12) (Vitamin B-12) 1,000 Mcg Tablet 1,000 MCG PO DAILY (Reported) Docusate Sodium (Colace) 100 Mg Capsule 200 MG PO DAILY (Reported) Donepezil (Aricept) 10 Mg Tablet 10 MG PO HS (Reported) Famotidine (Famotidine) 20 Mg Tablet 20 MG PO BID (Reported) Fluoxetine (Fluoxetine) 20 Mg Capsule 40 MG PO QAM (Reported) Furosemide (Lasix) 40 Mg Tablet 40 MG PO DAILY Prescribed by: HAROLDO COOPER MD Gabapentin (Gabapentin) 600 Mg Tablet 300 MG PO QAM (Reported) Insulin Glargine (Lantus U100 Insulin Vial) 100 Unit/Ml Vial 16 UNIT SUBQ HS Prescribed by: CAROL SALDAÑA DO Insulin Lispro (HumaLOG U100 Insulin Pen) 100 Unit/1 Ml Insuln.pen 1 UNIT SUBQ TIDWM Blood Sugar Lispro Correction <151 0 units 151-175 1 unit 176-200 2 units 201-225 3 units 226-250 4 units 251-275 5 units 276-300 6 units 301-325 7 units 326-350 8 units 351-375 9 units 376-400 10 units >400 12 units Check blood sugars before meals and at bedtime. Use correction factor only before meals. Prescribed by: CAROL SALDAÑA DO Losartan Potassium (Losartan Potassium) 25 Mg Tablet 25 MG PO HS (Reported) Multivitamin (Multivitamins) 1 Each Capsule 1 EACH PO DAILY (Reported) Potassium Chloride (Potassium Chloride) 10 Meq Capsule.er 10 MEQ PO DAILY TAKE WITH FOOD Prescribed by: HAROLDO COOPER MD Pramipexole Dihydrochloride (Pramipexole Dihydrochloride) 0.5 Mg Tablet 0.25- 0.5 MG PO HS (Reported) Tamsulosin (Flomax) 0.4 Mg Capsule 0.4 MG PO DAILY (Reported) As needed Acetaminophen (Acetaminophen) 325 Mg Capsule 650 MG PO TID PRN PRN For Pain ( Reported) Fluticasone Propionate (Flonase Allergy Relief) 50 Mcg/Actuation [place].susp 1 SPRAY NS DAILY PRN PRN allergies (Reported) Ranitidine (Ranitidine) 150 Mg Capsule 150 MG PO BID PRN PRN For Dyspepsia or Heartburn (Reported) diphenhydrAMINE HCl (Benadryl) 25 Mg Capsule 25 MG PO Q4 PRN PRN allergies ( Reported) oxyCODONE (oxyCODONE) 5 Mg Tablet 5 MG PO Q4H PRN PRN For Pain Prescribed by: EVAN STEWART Additional med instructions Recommend that you stop taking Metformin given underlying chronic kidney disease and followup with your primary care provider for further recommendations and management of diabetes. Followup Plan Disposition: Home with home health Follow-up plan 1. Followup with primary care provider in within one week Discharge Diet: Low fat, Low Sodium, Heart Healthy, Diabetic Discharge Activity: Home Health Phyical Therapy Patient Instructions Seek immediate medical attention if any new or worsening signs or symptoms occur. Resume home health including Bath-aid and physical therapy. Follow-up Provider: Kristy Roy MD Follow-up with PCP in: 1 week Time spent 35 min copies to: Kristy Roy MD; Juan Block MD, Masoud Apr 29, 2016 15:55
== END 2016-04-29 12:20 | disposition home or self-care (01) ==
LOC: SED 19:04 → MPC 23:30
PROVIDERS: ADMIT Internal Medicine; ATTEND Internal Medicine
DX: R53.1 Weakness (principal); S23.41XA Sprain of ribs, initial encounter; W01.198A Fall on same level from slipping, tripping and stumbling with subsequent striking against other object, initial encounter; Y93.01 Activity, walking, marching and hiking; Y92.012 Bathroom of single-family (private) house as the place of occurrence of the external cause; Z91.81 History of falling; D53.9 Nutritional anemia, unspecified; N18.9 Chronic kidney disease, unspecified; E11.9 Type 2 diabetes mellitus without complications; I25.10 Atherosclerotic heart disease of native coronary artery without angina pectoris; I50.22 Chronic systolic (congestive) heart failure; F03.90 Unspecified dementia, unspecified severity, without behavioral disturbance, psychotic disturbance, mood disturbance, and anxiety; N40.0 Benign prostatic hyperplasia without lower urinary tract symptoms; F32.9 Major depressive disorder, single episode, unspecified; G47.33 Obstructive sleep apnea (adult) (pediatric); Z95.1 Presence of aortocoronary bypass graft; R79.89 Other specified abnormal findings of blood chemistry; Z86.73 Personal history of transient ischemic attack (TIA), and cerebral infarction without residual deficits; E78.5 Hyperlipidemia, unspecified; I73.9 Peripheral vascular disease, unspecified; I35.0 Nonrheumatic aortic (valve) stenosis; J30.9 Allergic rhinitis, unspecified; Z95.0 Presence of cardiac pacemaker; K21.9 Gastro-esophageal reflux disease without esophagitis; F12.90 Cannabis use, unspecified, uncomplicated; Z87.891 Personal history of nicotine dependence; Z79.84 Long term (current) use of oral hypoglycemic drugs; Z79.4 Long term (current) use of insulin; Z79.82 Long term (current) use of aspirin
CPT/HCPCS: 36415; 70450; 71101; 80048; 80053; 80061; 81000; 82550; 82553; 83036; 83735; 83880; 84443; 84484; 85025; 85610; 85730; 93005; 96374; 96376; 97161; 99285; C8924; G0378; J1815; J2270; J7030; Q9957

== ENCOUNTER 2016-11-24 01:35 | Inpatient (IN) | payer MEDICARE ==
[2016-11-24] VITALS (11 sets, daily range): BP systolic 116–141; BP diastolic 55–79; PULSE 64–71; RESP 18–22; O2SAT 70–98
[~2016-11-24] VITALS: Ht 167.6 cm; Wt 74.0 kg
[~2016-11-24 01:35] MED LIST changes: +DONE10TA5 PO; +FAMO20TA4 PO; -METF1000 PO; +OXYC-530 PO; +TAMS0.4C98 PO
--- NOTE | 2016-11-24 01:37 | ED.REPORT ---
HPI-General Illness Date of Service Nov 24, 2016 ED Provider: Dr. Dinero Pt is a 71 y/o male w/ a hx of CHF with severe ischemic cardiomyopathy with reduced EF, bifascicular block with QT prolongation, pacemaker insertion, HTN, HLD, CAD s/p CABG with known occluded vein graft, carotid artery stenosis, paroxysmal a-fib, DM, presenting to the ED with his due to syncopal episode which occurred about 30 minutes prior to arrival. The patient went up a set of stairs in his house and walked to his bedroom and had a syncopal episode when he was standing next to his bed and was found on the ground by his who called EMS. There was a minor head injury sustained during the fall. There were no precipitating symptoms and he has experienced similar syncopal episodes several times previously. EMS arrived to find the patient diaphoretic and alert/ oriented. He declined EMS transport at that time and arrived by personal vehicle. Pt denies neck pain, chest pain, nausea, vomiting. He does report some nasal and head congestion today. He takes aspirin but no anticoagulants. Nursing Notes Stated Complaint: PASSED OUT Nursing Notes Reviewed: Yes Allergies: Coded Allergies: naproxen (Verified Allergy, Mild, Restless legs, 11/24/16) Scheduled Aspirin (Aspirin) 81 Mg Tablet 81 MG PO DAILY Atorvastatin Calcium (Atorvastatin Calcium) 80 Mg Tablet 80 MG PO DAILY Carvedilol (Carvedilol) 12.5 Mg Tablet 12.5 MG PO BID Cholecalciferol (Vitamin D3) (Vitamin D3) 1,000 Unit Tab.chew 1,000 UNIT PO DAILY Cyanocobalamin (Vitamin B-12) (Vitamin B-12) 1,000 Mcg Tablet 1,000 MCG PO DAILY Docusate Sodium (Colace) 100 Mg Capsule 200 MG PO DAILY Donepezil (Aricept) 10 Mg Tablet 10 MG PO HS Famotidine (Famotidine) 20 Mg Tablet 20 MG PO BID Fluoxetine (Fluoxetine) 20 Mg Capsule 40 MG PO QAM Furosemide (Lasix) 40 Mg Tablet 40 MG PO DAILY Gabapentin (Gabapentin) 600 Mg Tablet 300 MG PO QAM Insulin Glargine (Lantus U100 Insulin Vial) 100 Unit/Ml Vial 16 UNIT SUBQ HS Insulin Lispro (HumaLOG U100 Insulin Pen) 100 Unit/1 Ml Insuln.pen 1 UNIT SUBQ TIDWM Blood Sugar Lispro Correction <151 0 units 151-175 1 unit 176-200 2 units 201-225 3 units 226-250 4 units 251-275 5 units 276-300 6 units 301-325 7 units 326-350 8 units 351-375 9 units 376-400 10 units >400 12 units Check blood sugars before meals and at bedtime. Use correction factor only before meals. Losartan Potassium (Losartan Potassium) 25 Mg Tablet 25 MG PO HS Multivitamin (Multivitamins) 1 Each Capsule 1 EACH PO DAILY Potassium Chloride (Potassium Chloride) 10 Meq Capsule.er 10 MEQ PO DAILY TAKE WITH FOOD Pramipexole Dihydrochloride (Pramipexole Dihydrochloride) 0.5 Mg Tablet 0.25- 0.5 MG PO HS Tamsulosin (Flomax) 0.4 Mg Capsule 0.4 MG PO DAILY Scheduled PRN Acetaminophen (Acetaminophen) 325 Mg Capsule 650 MG PO TID PRN PRN For Pain Fluticasone Propionate (Flonase Allergy Relief) 50 Mcg/Actuation [place].susp 1 SPRAY NS DAILY PRN PRN allergies Ranitidine (Ranitidine) 150 Mg Capsule 150 MG PO BID PRN PRN For Dyspepsia or Heartburn diphenhydrAMINE HCl (Benadryl) 25 Mg Capsule 25 MG PO Q4 PRN PRN allergies oxyCODONE (oxyCODONE) 5 Mg Tablet 5 MG PO Q4H PRN PRN For Pain General Time Seen by MD: 01:37 Chief Complaint Other (syncope) Hx Obtained From: Patient Arrived By: Walk-in Sudden in Onset?: Yes Onset Occurred: 16 - 30 minutes ago Symptom Duration: 1 - 15 minutes Severity: Current: No pain currently Severity: Maximum: No pain Similar Sx Previous: Yes Past Medical History Past Medical History 1. Severe ischemic cardiomyopathy with ejection fraction 35%. 2. Bifascicular block with prolonged QRS duration. 3. [place] Heart [employer] class III heart failure symptoms. 4. Systemic hypertension. 5. Dyslipidemia. 6. Coronary artery disease status post bypass grafting with known occluded vein graft. 7. Carotid artery stenosis. 8. Paroxysmal atrial fibrillation. 9. Sleep apnea. 10. Nephrolithiasis. 11. Spinal stenosis. 12. Gastroesophageal reflux disease. 13. Diabetes mellitus. 14. Restless legs syndrome. 15. Diabetic peripheral neuropathy. Past Surgical History Coronary artery disease status post bypass grafting with known occluded vein graft. CTR L&R Pacemaker Reports: Cholecystectomy Smoking History Former Smoker Social History Alcohol Use: Denies alcohol use Drug Use: Denies drug use Ambulatory Status Independent Review of Systems Full Review of Systems Constitutional: Denies: Fever Ears / Nose / Throat: Reports: Nasal congestion Respiratory: Denies: Shortness of breath Cardiovascular: Denies: Chest pain GI: Denies: Abdominal pain, Nausea, Vomiting Musculoskeletal: Denies: Neck pain Skin: Reports Diaphoresis Neurologic: Reports: Change LOC, Syncope, Denies: Headache Complete sys rev & neg: except as marked. Physical Exam Vital Signs Vital Signs Date Time Temp Pulse Resp B/P Pulse Ox O2 Delivery O2 Flow Rate FiO2 11/24/16 03:29 122/69 70 11/24/16 03:29 70 22 131/69 96 Room Air 11/24/16 03:29 70 119/69 11/24/16 01:39 70 19 134/79 97 Room Air Initial VS: Reviewed, Vital signs normal ENT: Mucous membranes moist, Conjunctiva normal, No scleral icterus Neck: Supple, Full range of motion Respiratory: Breath sounds normal, Clear to auscultation, No respiratory distress Extremities: Vascular intact, Neuro intact Neurologic: Alert, Oriented, Nonfocal Psychiatric: Mood/affect normal, Behavior normal, Normal thought content General/Constitutional: Awake, Alert, No acute distress, Cooperative, Not toxic appearing Appearance / Presentation: Positive: Pale Head / Eyes: Normocephalic, PERRL Abrasion over top of head from hairline to the crown just left of midline. Cardiovascular: Heart rate NL, Regular rhythm, Heart sounds NL, No gallop, No murmurs, No rubs, Cap refill not delayed, Peripheral circulation NL, Pulses = bilaterally Lower Ext Edema: Positive: Bilateral 2+ Skin: Atraumatic, Warm, Intact Color / Condition: Positive: Diaphoresis present (mild) Pale Interpretation & Diagnostics Lab Results Interpretation Result Diagram: 11/24/16 0155 11/24/16 0155 Test 11/24/16 01:55 Prothrombin Time 11.1sec (8.1-12.5) Prothromb Time International Ratio 1.04ratio Activated Partial Thromboplast Time 24.7sec (22.8-33.0) Magnesium Level 1.9mg/dL (1.6-2.6) Pro-B-Type Natriuretic Peptide 7652pg/mL (0-376) Hold Meng Top Tube Received (Received) ECG Interpretation ECG Interpretation: Ventricularly paced rhythm rate 70 Time: 01:47 Interpreted by: ED physician X-Ray Chest Interpretation Chest Xray Interpretation: Possible RUL infiltrate Increased vascular markings View: Portable, 1 view Interpretation / Wet Read by: Wet read ED physician CT Head Interpretation Impression: No acute intracranial traumatic abnormality. Incidental findings above. Radiologist: Shania Wallis MD Study: Head CT no contrast Interpretation / Wet Read by: Wet read ED physician Re-Eval/Medical Decision Med Decision/Clinical Course 71-year-old multiple episodes of syncope in the past, presents after syncopal episode at home. Is an abrasion on his head no other identified injury. Troponin is mildly elevated as his BUN/creatinine. Admitted for trending of his troponin and monitoring of his pulse. Pacemaker appears to be functional. Doubt bradycardia dysrhythmia as the cause. Chest x-ray suggest fluid overload and BNP is quite elevated in the mid 7000s Time of Eval: 02:55 Re-Evaluation/Progress Note: Pt rechecked. Informed pt of plan for admission due to abnormal labs combined with unprovoked syncope. Pt understands and agrees with plan for admission. All questions addressed. Consultation : Referral / Consult Name: Nuha Hensley DO Call Returned at: 03:10 Placer Miner: Will see patient, Agrees with eval, Agrees with plan, Accepts admit Counseled Regarding: Diagnosis, Lab results, Need for admission Discharge & Departure Primary Impression: Syncope Syncope type: unspecified Qualified Code: R55 - Syncope and collapse Additional Impressions: Ischemic cardiomyopathy Elevated troponin Elevated brain natriuretic peptide (BNP) level Pulmonary edema Chronicity: chronic Qualified Code: J81.1 - Chronic pulmonary edema Disposition: ADMITTED TO HOSPITAL Discharge Condition All VS Reviewed: Yes Condition: Stable Referrals: Kristy Roy MD (PCP) Scribe Attestation Portions of this note were transcribed by Sage Cooley. I, Dr. Dinero personally performed the history, physical exam and medical decision-making; I reviewed and confirmed the accuracy of the information in the transcribed note. copies to: Kristy Roy MD, Christopher W MD Nov 24, 2016 01:37 SAGE COOLEY Nov 24, 2016 01:47 (ALT/SGPT) 29U/L (0-44) Alkaline Phosphatase 113U/L (25-160) Troponin T 0.014ug/L (0.0-0.011) Pro-B-Type Natriuretic Peptide 7652pg/mL (0-376) Total Protein 7.6g/dL (6.4-8.4) Albumin 4.3g/dL (3.4-5.0) Hold Meng Top Tube Received (Received) ECG Interpretation ECG Interpretation: Ventricularly paced rhythm rate 70 Time: 01:47 Interpreted by: ED physician X-Ray Chest Interpretation Chest Xray Interpretation: Possible RUL infiltrate Increased vascular markings View: Portable, 1 view Interpretation / Wet Read by: Wet read ED physician CT Head Interpretation Impression: No acute intracranial traumatic abnormality. Incidental findings above. Radiologist: Shania Wallis MD Study: Head CT no contrast Interpretation / Wet Read by: Wet read ED physician Re-Eval/Medical Decision Time of Eval: 02:55 Re-Evaluation/Progress Note: Pt rechecked. Informed pt of plan for admission due to abnormal labs combined with unprovoked syncope. Pt understands and agrees with plan for admission. All questions addressed. Consultation : Referral / Consult Name: Nuha Hensley Call Returned at: 03:10 Placer Miner: Will see patient, Agrees with eval, Agrees with plan, Accepts admit Counseled Regarding: Diagnosis, Lab results, Need for admission Discharge & Departure Primary Impression: Syncope Syncope type: unspecified Qualified Code: R55 - Syncope and collapse Additional Impressions: Ischemic cardiomyopathy Elevated troponin Elevated brain natriuretic peptide (BNP) level Disposition: ADMITTED TO HOSPITAL Discharge Condition All VS Reviewed: Yes Condition: Stable Referrals: Kristy Roy MD (PCP) Scribe Attestation Portions of this note were transcribed by Sage Cooley. I, Dr. Dinero personally performed the history, physical exam and medical decision-making; I reviewed and confirmed the accuracy of the information in the transcribed note. copies to: Kristy Roy MD, Christopher W MD Nov 24, 2016 01:37 SAGE COOLEY Nov 24, 2016 01:47
[2016-11-24 02:02] LABS: BASOPHILS % (AUTO) 0.5 % (0-3); EOSINOPHILS % (AUTO) 3.2 % (0-5); MONOCYTES % (AUTO) 9.3 % (4-12); Mean Corpuscular Hemoglobin 28.9 pg (27.0-35.0); Mean Corpuscular Volume 90.3 fL (81-100); NEUTROPHILS % (AUTO) 67.4 % (40-74); Platelet Count 153 bil/L (150-400)
[2016-11-24 02:25] LABS: INR 1.04 ratio
[2016-11-24 02:29] LABS: TROPONIN T 0.014 ug/L (0.0-0.011)
[2016-11-24 02:41] LABS: Magnesium 1.9 mg/dL (1.6-2.6)
[2016-11-24] MEDS ORDERED: Ondansetron 2 mg/mL 2 mL Inj IVPUSH PRN (03:55)
[2016-11-24] MEDS ORDERED: Polyethylene Glycol (PEG) 17 Gm Powder PO PRN (03:55)
[2016-11-24] MEDS ORDERED: Alum-Mag Hydrox-Simeth 30 mL Suspension PO PRN (03:55)
[2016-11-24] MEDS ORDERED: TdaP Vaccine 0.5 mL Inj IM ONE (04:00)
[2016-11-24] MEDS ORDERED: diphenhydrAMINE 25 mg Capsule PO PRN (04:35)
--- NOTE | 2016-11-24 05:00 | PCM.HPMED ---
Subjective Date of Service Nov 24, 2016 Primary Provider: Admitting Physician: Nuha Hensley DO Primary Care Physician: Kristy Roy MD Attending Physician: Nuha Hensley DO Chief Complaint: Syncope History of Present Illness: Patient is a 71 year old male with past medical history of Systolic Heart Failure with EF of 35%, Bifascicular heark block with prolonged QT and pacemaker, HTN, CAD, hyperlipidemia, and paroxysmal Afib presenting after a syncopal episode that occurred around 0100 this morning. Patient reports he was walking up the stairs in his house when he started getting weak in his legs and roughly 20 seconds later became short of breath at the 14th and top step, he tried to get to the bedroom, but does not remember anything after this. His states she heard him fall and found him in the doorway. He was unresponsive for about 1-2 minutes and began to wake up. She then called EMS. Patient appeared to have struck head on the wall as he was falling. Associated symptoms include lightheadedness and 2-3 days worth of increased lower extremity swelling, denies any CP, VILLALBA, ABD pain, N/V/D, change in urinary frequency. Patient reports periodic syncopal episodes after exertion. reports last episode was in July when he walked about a block and passed out in the street. states that he has recently been sleeping in his recliner more frequently despite having a CPAP machine for FELIPE. Patient denies any recent sickness, sick contacts, or medication changes. In the ED, patient had CT performed showing no intracranial traumatic abnormalities. Review of Systems: ROS reviewed and otherwise negative unless noted above. Allergies Coded Allergies: naproxen (Verified Allergy, Mild, Restless legs, 11/24/16) Home Medications Scheduled Aspirin (Aspirin) 81 Mg Tablet 81 MG PO DAILY Atorvastatin Calcium (Atorvastatin Calcium) 80 Mg Tablet 80 MG PO DAILY Carvedilol (Carvedilol) 12.5 Mg Tablet 12.5 MG PO BID Cholecalciferol (Vitamin D3) (Vitamin D3) 1,000 Unit Tab.chew 1,000 UNIT PO DAILY Cyanocobalamin (Vitamin B-12) (Vitamin B-12) 1,000 Mcg Tablet 1,000 MCG PO DAILY Docusate Sodium (Colace) 100 Mg Capsule 200 MG PO DAILY Donepezil (Aricept) 10 Mg Tablet 10 MG PO HS Famotidine (Famotidine) 20 Mg Tablet 20 MG PO BID Fluoxetine (Fluoxetine) 20 Mg Capsule 40 MG PO QAM Furosemide (Lasix) 40 Mg Tablet 40 MG PO DAILY Gabapentin (Gabapentin) 600 Mg Tablet 300 MG PO QAM Insulin Glargine (Lantus U100 Insulin Vial) 100 Unit/Ml Vial 16 UNIT SUBQ HS Insulin Lispro (HumaLOG U100 Insulin Pen) 100 Unit/1 Ml Insuln.pen 1 UNIT SUBQ TIDWM Blood Sugar Lispro Correction <151 0 units 151-175 1 unit 176-200 2 units 201-225 3 units 226-250 4 units 251-275 5 units 276-300 6 units 301-325 7 units 326-350 8 units 351-375 9 units 376-400 10 units >400 12 units Check blood sugars before meals and at bedtime. Use correction factor only before meals. Losartan Potassium (Losartan Potassium) 25 Mg Tablet 25 MG PO HS Multivitamin (Multivitamins) 1 Each Capsule 1 EACH PO DAILY Potassium Chloride (Potassium Chloride) 10 Meq Capsule.er 10 MEQ PO DAILY TAKE WITH FOOD Pramipexole Dihydrochloride (Pramipexole Dihydrochloride) 0.5 Mg Tablet 0.25- 0.5 MG PO HS Tamsulosin (Flomax) 0.4 Mg Capsule 0.4 MG PO DAILY Scheduled PRN Acetaminophen (Acetaminophen) 325 Mg Capsule 650 MG PO TID PRN PRN For Pain Fluticasone Propionate (Flonase Allergy Relief) 50 Mcg/Actuation [place].susp 1 SPRAY NS DAILY PRN PRN allergies Ranitidine (Ranitidine) 150 Mg Capsule 150 MG PO BID PRN PRN For Dyspepsia or Heartburn diphenhydrAMINE HCl (Benadryl) 25 Mg Capsule 25 MG PO Q4 PRN PRN allergies oxyCODONE (oxyCODONE) 5 Mg Tablet 5 MG PO Q4H PRN PRN For Pain PMH 1. Severe ischemic cardiomyopathy with ejection fraction 35%. (04/28/16) 2. Bifascicular block with prolonged QRS duration. 3. [place] Heart Association class III heart failure symptoms. 4. Systemic hypertension. 5. Dyslipidemia. 6. Coronary artery disease status post bypass grafting with known occluded vein graft. 7. Carotid artery stenosis. 8. Paroxysmal atrial fibrillation. 9. Sleep apnea. 10. Nephrolithiasis. 11. Spinal stenosis. 12. GERD. 13. Diabetes mellitus. 14. Restless legs syndrome. 15. Diabetic peripheral neuropathy. Surgical History Coronary artery disease status post bypass grafting with known occluded vein graft. CTR L&R Pacemaker Cholecystectomy Family History Family history of DM and CAD in mother Social History Hx Alcohol Use: Yes (rare) Hx Substance Use: No Hx Tobacco Use: Yes (quit 35 years ago, 1/2 PPD 10 years) Smoking Status: Former Smoker Living Arrangement: with Family Exam Vital Signs Vital Sign - Last Date Time Temp Pulse Resp B/P Pulse Ox O2 Delivery O2 Flow Rate FiO2 11/24/16 04:41 36.7 70 19 141/76 98 Room Air Exam Constitutional: Awake, alert and oriented x4, no acute distress Head: normocephalic with no bony abnormalities to palpation; 1x1.5" Abrasion to left frontal scalp with no oozing or active bleeding. Eyes: Pupils equal round and reactive to light. EOMI, no scleral icterus Mouth: Moist Mucous membranes, No trauma noted, no posterior oropharynx erythema Neck: FROM, supple Heart: Regular rate and rhythm, 2/6 systolic murmur to the left sternal border. no rubs or gallops. 2+ peripheral edema bilaterally. JVD present Lungs: Clear to auscultation bilaterally, no wheeze, rales, or rhonchi ABD: soft, nontender, mild hepatomegaly, bowel sounds present throughout. Musculoskeletal: moves all four extremities appropriately Neuro: CN II-XII intact. no focal abnormalities Skin: warm, dry, no rash or further traumatic areas other than mentioned above. Psych: appropriate mood an affect. Lab and Diagnostics Labs Item Value Date Time Red Blood Count 3.91 mil/mm3 L 11/24/16154 Mean Corpuscular Volume 90.3 fL 11/24/16154 Mean Corpuscular Hemoglobin 28.9 pg 11/24/16154 Mean Corpuscular Hemoglobin Concent 32.0 % 11/24/16154 Red Cell Distribution Width 15.0 % 11/24/16154 Neutrophils (%) (Auto) 67.4 % 11/24/16154 Lymphocytes (%) (Auto) 19.4 % 11/24/16154 Monocytes (%) (Auto) 9.3 % 11/24/16154 Eosinophils (%) (Auto) 3.2 % 11/24/16154 Basophils (%) (Auto) 0.5 % 11/24/16154 Prothrombin Time 11.1 sec 11/24/16154 Prothromb Time International Ratio 1.04 ratio 11/24/16154 Activated Partial Thromboplast Time 24.7 sec 11/24/16154 Estimat Glomerular Filtration Rate 51 mL/min 11/24/16154 Calcium Level 9.3 mg/dL 11/24/16154 Magnesium Level 1.9 mg/dL 11/24/16154 Total Bilirubin 0.4 mg/dL 11/24/16154 Aspartate Amino Transf (AST/SGOT) 37 U/L 11/24/16154 Alanine Aminotransferase (ALT/SGPT) 29 U/L 11/24/16154 Alkaline Phosphatase 113 U/L 11/24/16154 Troponin T 0.014 ug/L H 11/24/16154 Pro-B-Type Natriuretic Peptide 7652 pg/mL H 11/24/16154 Total Protein 7.6 g/dL 11/24/16154 Albumin 4.3 g/dL 11/24/16154 Result Diagram: 11/24/1615411/24/16154 X-Rays, CTs and MRIs X-Ray Chest Interpretation Chest Xray Interpretation: Possible RUL infiltrate Increased vascular markings View: Portable, 1 view Interpretation / Wet Read by: Wet read ED physician CT Head Interpretation Impression: No acute intracranial traumatic abnormality. Incidental findings above. Radiologist: Shania Wallis MD Study: Head CT no contrast Interpretation / Wet Read by: Wet read ED physician 12-lead ECG ECG Interpretation ECG Interpretation: Ventricularly paced rhythm rate 70 Time: 01:47 Interpreted by: ED physician Cardiac Echo Impressions Echocardiogram Report from 04/28/2016 Interpretation Summary 1. Normal left ventricular size with increased thickness of the septal wall with multiple wall motion abnormalities as noted below and global EF estimated at 30-35% 2. Normal right ventricular size with mild to moderately reduced systolic function. The estimated RVSP is 71 mm Hg 3. Evidence for moderate aortic stenosis, no insufficiency Compared to the previous study, the estimated RVSP is higher Reading Physician:08:11 PM Assessment & Plan Patient is a 71 year old male with past medical history of Systolic Heart Failure with EF of 35%, Bifascicular heark block with prolonged QT and pacemaker, HTN, CAD, hyperlipidemia, and paroxysmal Afib presenting after a syncopal episode that occurred around 0100 this morning. -Acute Syncopal Episode, POA, Resolved, Stable - Patient experienced a 1-2 min syncopal episode after climbing 14 stairs in his house and becoming SOB, likely secondary to exacerbation of systolic congestive heart failure - Monitor and treat underlying causes - Acute Exacerbation of Chronic Systolic Heart Failure with Reduced Ejection Fraction, POA, Active, Stable - Patient's last EF 30-35%, increasing exertional dyspnea, orthopnea, and syncopal episodes - Furosemide 40mg IV Daily - Monitor I&Os - Consider repeat Echo if patient does not clinically improve after diuresis - Chronic Kidney Disease, Chronic, Stable - Patient 1.44 SCr on admission, appears to be patient's baseline - Monitor - Patient has indeterminate elevated troponin, no current symptoms and denies any CP, will repeat Q6 and monitor if this increases. - AM CMP - History of Diabetes Mellitus insulin dependent, Chronic, Stable - Patient takes Lantus 15U HS, continue - Insulin correctional dose - History of Sleep Apnea, Chronic, Stable - Continue home nightly oxygen - History of CAD, Chronic, Stable - Continue home dose Carvedilol - Continue home dose of Losartan Patient is FULL CODE Due to complexity of case and need for continued care, patient is admitted under the inpatient status with expected length of stay greater than two midnights. Pain Evaluation: Adequate Pain Control GI Prophylaxis: H2 mohinder VTE Prophylaxis Indicated: Meets Criteria for Anticoag Therapy VTE Prophylaxis: Sub-Q Heparin (Unfractionated) Resuscitation Status: CPR: Attempt Resuscitation Attending Statement The patient was seen and examined together with house staff on 11/24/2016 and I agree with the history, exam and plan as outlined in the note above. Rufus Murray DO Nov 24, 2016 05:00 Nuha Hensley DO Nov 24, 2016 06:10
[2016-11-24] MEDS ORDERED: Glucose 40% Oral Gel 15 Gm Tube PO PRN (05:25)
[2016-11-24 06:23] LABS: BASOPHILS % (AUTO) 0.3 % (0-3); EOSINOPHILS % (AUTO) 2.1 % (0-5); Mean Corpuscular Hemoglobin 28.9 pg (27.0-35.0); Mean Corpuscular Volume 91.8 fL (81-100); NEUTROPHILS % (AUTO) 72.6 % (40-74); Platelet Count 127 bil/L (150-400)
[2016-11-24 06:42] LABS: TROPONIN T 0.025 ug/L (0.0-0.011)
[2016-11-24] MEDS: Furosemide 10 mg/mL 4 mL Inj IVPUSH SCH ×2 (06:42→08:25)
--- NOTE | 2016-11-24 06:51 | NUR ---
Admit Admitted from ED to 3015. Tele VPaced 70's w/o CP. RA SpO2 high 90's w/o SOB. Currently denies dizziness. Forehead and left knee abrasion noted from fall. Denies any specific complaints other than generalized weakness. Personal belongings at bedside per patient request. Oriented to call light use with return demonstration. Educated on risk of injury from falls and encouraged to use call light and wait for assistance prior to exiting bed with verbal understanding.
[2016-11-24] MEDS ORDERED: Pantoprazole 20 mg ER24 Tablet PO SCH (07:30)
[2016-11-24] MEDS: Insulin LISPRO 300 Unit/3 mL Inj SUBQ SCH ×4 (07:53→21:09)
[2016-11-24] MEDS ORDERED: Fluticasone 0.05% 15 Spray/2 Gm 16 Gm Nasal Spray NASAL PRN (08:30)
[2016-11-24] MEDS: Heparin 5,000 Unit/mL Inj SUBQ SCH ×3 (08:37→23:52)
--- NOTE | 2016-11-24 09:29 | DRSVH ---
PROCEDURE: CT BRAIN WITHOUT CONTRAST ([id number]) INDICATIONS: SYNCOPE, BLUNT HEAD INJURY TECHNIQUE: Noncontrast 4.5 mm thick angled axial sections acquired from the foramen magnum to the vertex, with c oronal reformats. COMPARISON: [facility], CT, CT BRAIN WO CON, 04/28/2016, 14:43. FINDINGS: Image quality: Excellent. CSF spaces: Basal cisterns are patent. No extra-axial fluid collections. The ventricles are symmet carla in size and shape. Brain: No intracranial bleeds or masses. There is cerebral volume loss for age, with resultant vent ricular and sulcal prominence. There are periventricular and deep white matter chronic small vessel ischemic changes. There is intracranial internal carotid artery atherosclerosis. Skull and face: Calvarium and visualized facial bones appear intact, without suspicious lesions. Sinuses: Visualized sinuses and mastoids are clear. IMPRESSION: Normal for age, no trauma found. Dictated by: Scottie Cantu M.D. on 11/24/2016 at 9:27 Approved by: Scottie Cantu M.D. on 11/24/2016 at 9:27
--- NOTE | 2016-11-24 10:00 | DRSVH ---
PROCEDURE: X-RAY CHEST ONE VIEW, PORTABLE ([id number]) INDICATIONS: SYNCOPE TECHNIQUE: One view of the chest was acquired. COMPARISON: [facility], CR, XR CHEST 1VW (PORTABLE), 01/18/2016, 1:40. [facility], CR, XR CHEST 1VW (PORTABLE), 01/10/2016, 12:46. FINDINGS: Surgical changes and devices: Prior CABG, sternotomy wires, dual-chamber cardiac pacemaking device an d leads again noted Lungs and pleura: No pleural effusions or pneumothorax. Lungs are abnormal, with a persistent mild interstitial prominence pattern which could obscure visualization of a mild or early pneumonia. Mediastinum: Mediastinal contours appear normal. Heart size is normal. Bones and chest wall: No suspicious bony lesions. Overlying soft tissues appear unremarkable. IMPRESSION: Persistent pattern of interstitial prominence, perhaps reflecting of chronic CHF pattern in this patient with prior CABG, sternotomy wires, and dual-chamber cardiac pacemaking device and mul tiple leads in place. No definite trauma or acute disease found, however. Dictated by: Scottie Cantu M.D. on 11/24/2016 at 9:57 Approved by: Scottie Cantu M.D. on 11/24/2016 at 9:58
[2016-11-24] MEDS ORDERED: .Epic Conversion Completed XX PRN (11:25)
--- NOTE | 2016-11-24 12:49 | PCM.PNMED ---
Subjective Date of Service Nov 24, 2016 Subjective Patient is doing better. He denies any chest pain, or palpitations. No shortness of breath currently. He is being diuresed. He denies any abdominal pain or recent diarrhea. No critical overnight events noted. Exam Vital Signs Vital Sign - Last Date Time Temp Pulse Resp B/P Pulse Ox O2 Delivery O2 Flow Rate FiO2 11/24/16 11:43 70 11/24/16 08:28 36.3 18 116/55 97 Room Air Intake and Output 11/23/16 11/23/16 11/24/16 Cumulative From/Thru 15:00 23:00 07:00 11/24/16 04:43 - 11/24/16 05:59 Intake Total 100 ml 100 ml Output Total 0 ml 0 ml Balance 100 ml 100 ml Intake Oral 100 ml 100 ml Output Urine Total 0 ml 0 ml # Bowel Movements 0 0 Exam Oriented 3 Anicteric sclera Neck is supple Lungs are clear with normal rate and effort. Heart is regular without murmur gallop or rub Abdomen is distended and nontender Extremities are free of edema with good pedal pulses. Skin is otherwise free of rash or lesions. IVs and Medications Medications Reviewed: Medications were reviewed in detail Lab and Diagnostics Result Diagram: 11/24/16 0543 11/24/16 0543 X-Rays, CTs and MRIs X-Ray Chest Interpretation Chest Xray Interpretation: Possible RUL infiltrate Increased vascular markings View: Portable, 1 view Interpretation / Wet Read by: Wet read ED physician CT Head Interpretation Impression: No acute intracranial traumatic abnormality. Incidental findings above. Radiologist: Shania Wallis MD Study: Head CT no contrast Interpretation / Wet Read by: Wet read ED physician 12-lead ECG ECG Interpretation ECG Interpretation: Ventricularly paced rhythm rate 70 Time: 01:47 Interpreted by: ED physician Cardiac Echo Impressions Echocardiogram Report from 04/28/2016 Interpretation Summary 1. Normal left ventricular size with increased thickness of the septal wall with multiple wall motion abnormalities as noted below and global EF estimated at 30-35% 2. Normal right ventricular size with mild to moderately reduced systolic function. The estimated RVSP is 71 mm Hg 3. Evidence for moderate aortic stenosis, no insufficiency Compared to the previous study, the estimated RVSP is higher Reading Physician:08:11 PM Assessment & Plan Patient is a 71 year old male with past medical history of Systolic Heart Failure with EF of 35%, Bifascicular heark block with prolonged QT and pacemaker, HTN, CAD, hyperlipidemia, and paroxysmal Afib presenting after a syncopal episode that occurred around 0100 this morning. #. Acute Syncopal Episode, POA, Resolved, Stable. -The patient has a history of recurrent syncopal episodes with normal interrogation of pacemaker in the past. Will follow him in telemetry for the next 12-24 hours. Also physical therapy move him around and see how he does. - Patient experienced a 1-2 min syncopal episode after climbing 14 stairs in his house and becoming SOB, likely secondary to exacerbation of systolic congestive heart failure #. Acute Exacerbation of Chronic Systolic Heart Failure with Reduced Ejection Fraction, POA, Active, Stable - Patient's last EF 30-35%, increasing exertional dyspnea, orthopnea, and syncopal episodes - Furosemide 40mg IV Daily - Monitor I&Os - Consider repeat Echo if patient does not clinically improve after diuresis #. Elevated troponin, present on admission and active. The clinical skull significance of this is unclear. We'll continue to trend his troponins were followed carefully. He has had a stress test in the last 6 months which is normal. We'll follow-up review the study. #. Chronic Kidney Disease stage III, Chronic, Stable - Patient 1.44 SCr on admission, appears to be patient's baseline - Monitor - Patient has indeterminate elevated troponin, no current symptoms and denies any CP, will repeat Q6 and monitor if this increases. - AM CMP, and follow clinically. #. Type 2 Diabetes Mellitus insulin dependent, consolidation and stable. - Patient takes Lantus 15U HS, continue - Insulin correctional dose, no change to this regimen. #. Obstructive Sleep Apnea, Chronic, Stable - Continue home nightly oxygen #. Coronary artery disease, present on admission and Stable - Continue home dose Carvedilol - Continue home dose of Losartan Patient is FULL CODE Due to complexity of case and need for continued care, patient is admitted under the inpatient status with expected length of stay greater than two midnights. Anticipate discharge on November 25. GI Prophylaxis: H2 mohinder VTE Prophylaxis: Sub-Q Heparin (Unfractionated) Resuscitation Status: CPR: Attempt Resuscitation Mart Tripathi MD Nov 24, 2016 12:49
--- NOTE | 2016-11-24 14:02 | PCM.ADCARE ---
Advance Care Planning Note Purpose of Encounter: To discuss level of care and resuscitation wishes.. Parties in Attendance: Patient and family including and daughter. Decisional Capacity: He is decisional. Subjective: He is doing better. He denies palpitations, chest pain or dyspnea while lying in bed. Objective: Lungs are clear with normal rate and effort Heart is regular without murmur gallop or rub Extremities are free of edema other than some mild chronic left leg edema. Goals of Care Determinations: DO NOT RESUSCITATE. DO NOT INTUBATE No ICU level care including mechanical ventilation. The patient would like to undergo simple measures such as basic diuresis, telemetry monitoring and interrogation of his pacemaker. He notes he is ready to go on the Lord calls him. Plan: DO NOT RESUSCITATE. Will simply diuresis follow him on telemetry and plan on discharge after pacemaker interrogation. CODE STATUS: DO NOT RESUSCITATE Time Spent Adv.Care Plannin minutes Mart Tripathi MD Nov 24, 2016 14:02
--- NOTE | 2016-11-24 14:10 | NUR ---
Initial Assessment/Readiness for Discharge/Multidisciplinary Rounds D: EMR reviewed. Please see initial assessment linked to this note for further information. Pt is a 71 y/o male admitted [place] - no readmit risk score assigned - for syncope, elevated troponin, cardiomyopathy per H&P. Pt discussed in multidisciplinary rounds and is medically stable for discharge today or tomorrow, pending work-up. Pt's insurance is [employer] and PCP is Kristy Roy MD. JEREMIAH met with pt, spouse, and family and bedside to conduct initial assessment. Pt was alert and oriented x3. SW explained role, wrote phone number on white board, provided [facility] Discharge Planning Checklist, and encouraged pt or family to call with any discharge planning questions/concerns. Pt and family agreeable. Pt lives with his spouse in a two-story home with 4 steps to enter and 13 steps to the second floor. Pt uses a 3-wheeled walker for ambulation, cane, and a DPAP machine provided through [employer]. Pt needs assistance with ADLs including bathing, meal preparation, chores, and medication management. Pt's spouse states she provides assistance with ADLs at home. Pt is also open with [facility] RN PT 2x/week. Pt's spouse expressed concerns regarding bathing pt - pt's spouse concerned pt will fall and she is not strong enough to help pt bathing without risk for him falling. JEREMIAH acknowledged and confirmed SW will discuss concerns with MD. Pt does not have hx at a SNF. Pt does not have LTC insurance or VA benefits. Pt states he has completed DPOA/advanced directive ppw and SW encouraged pt and spouse to provide a copy to the hospital - pt and spouse agreeable. Pt's spouse will provide transport when pt is medically stable. JEREMIAH asked if pt or family had any other concerns regarding discharge planning, pt and spouse declined. Pt's spouse stated if she could get help bathing pt through [facility] (choice list provided), she would feel a lot better about caring for pt at home. JEREMIAH asked if pt and spouse needed any other resources for home-care, pt and spouse declined. JEREMIAH met with MD regarding pt's and spouse's concerns for safety regarding bathing. MD agreeable to increase [facility] RN PT to 3x/week and add BLACKING MACHINE OPERATOR for bathing 3x/week. JEREMIAH provided MD with F2F and requested order. SW to contact [facility] once SW order placed and F2F completed. A: Pt who needs assistance with most ADLs and does not have capacity for self-care at home. Pt for whom HH RN PT BLACKING MACHINE OPERATOR 3x/week is medically necessary per MD. Pt's spouse provides support with ADLs at home. P: Pt anticipated to discharge home with spouse to transport via POV. SW to contact [facility] once MD order placed and F2F completed. SW to notify family if [facility] can open for BLACKING MACHINE OPERATOR services at time of discharge. JEREMIAH will continue to follow. [facility] [place] Addendum: 11/24/16 at 1425 by QUINCY BLANCAS SS Amended: Links added. Addendum: 11/24/16 at 1426 by QUINCY BLANCAS SS Pt lives at home with spouse in [facility].
--- NOTE | 2016-11-24 14:28 | NUR ---
Case Management: IMM given and explained to pt and family. Maria Dolores MERRILL RN
--- NOTE | 2016-11-24 15:59 | NUR ---
Evaluation completed. Please go to "Notes" then click on "Assessments and Notes" (bottom left corner of screen). Then select appropriate discipline tab on top of screen.
--- NOTE | 2016-11-24 16:38 | NUR ---
Physical Therapy 0940 - Discussed his care with Dr. Tripathi and the rest of the multidisciplinary care team during morning rounds. Informed them that he had been kept bedrest due to the syncope and wondered if he could work with Physical Therapy (PT). Dr. Tripathi said he would order PT. Also, informed him that there seemed to be a double order for IV >asix so the second order was withheld. Dr. Tripathi was in agreement. The patient had expressed wishes to take a shower and Dr. Tripathi said he could be off telemetry for the shower and that he would down-grade him from PCC to [facility] status. 1430 - He requested something for the "sore on my buttocks." Retrieved some calmoseptine cream for him which his put on. 1525 - Nallely from Physical Therapy said she worked with him and that he had complained of dizziness, but that his blood pressures had remained stable. Care continues.
--- NOTE | 2016-11-24 17:17 | NUR ---
Home Medication Reconciliation Just spoke to the patient and his asking if they had an updated medication list that was brought in. The had not brought it in, but said she would bring in his medications tomorrow. Care continues.
--- NOTE | 2016-11-24 17:18 | NUR ---
Social Work: Continued Discharge Planning D: EMR reviewed. Pt is on day 1 of hospitalization. JEREMIAH received completed F2F and MD order for HH PT RN TRAFFIC ANALYST 3x/week. JEREMIAH placed T/C and left voicemail regarding new HH service add on. JEREMIAH provided access. JEREMIAH faxed F2F to [facility] and indicated in voicemail that a copy will also be available to warehouse order picker from desk on [facility]. JEREMIAH confirmed new service with pt and family who were appreciative of TRAFFIC ANALYST as it is important for pt's safety and fall risk prevention. JEREMIAH confirmed faxed F2F went through - original in folder/also available for [facility] to pick-up from on [facility]. A: Pt who needs assistance with most ADLs and does not have capacity for self-care at home. Pt for whom HH RN PT TRAFFIC ANALYST 3x/week is medically necessary per MD. Pt's spouse provides support with ADLs at home. P: Pt anticipated to discharge home with spouse to transport via POV. JEREMIAH received completed F2F and MD order for HH PT RN TRAFFIC ANALYST 3x/week. JEREMIAH placed T/C and left voicemail to [facility] regarding new HH service add on. JEREMIAH provided access. JEREMIAH faxed F2F to [facility] and indicated in voicemail that a copy will also be available to warehouse order picker from desk on [facility]. JEREMIAH confirmed new service with pt and family who were appreciative of TRAFFIC ANALYST. No other SW needs at this time, no other MD orders. JEREMIAH will continue to follow. [facility] [place]
[2016-11-24] MEDS ORDERED: Insulin GLARgine 100 Unit/mL Syringe SUBQ SCH (21:00)
== END 2016-11-25 01:35 | disposition admitted as inpatient to this hospital (09) | DRG 951 ==
LOC: SED 01:35 → MPC 03:42 → OBSVTOIN 03:42
PROVIDERS: ADMIT Internal Medicine; ATTEND Hospitalist
DX: R69 Illness, unspecified (principal)